=== PATIENT | male | born 1935 | race Caucasian/White ===

== ENCOUNTER 2018-03-16 11:55 | Emergency (ER) | payer MEDICARE, OTHER, MEDICAID ==
[2018-03-16 12:51] LABS: ADD MAN DIFF? NO
[2018-03-16 13:01] LABS: BASOPHILS % 0.6 % (0.0-2.0); EOSINOPHILS # 0.2 10^3/ul (0.0-0.5); EOSINOPHILS % 4.1 % (0.0-7.0); HEMATOCRIT 38.9 % (42.0-52.0); HEMOGLOBIN 13.2 g/dl (14.0-18.0); LYMPHOCYTES # 1.5 10^3/ul (0.8-2.9); LYMPHOCYTES % 28.3 % (15.0-51.0); MEAN CORPUSCULAR HEMOGLOBIN 29.8 pg (29.0-33.0); MEAN CORPUSCULAR HGB CONC 33.9 g/dl (32.0-37.0); MEAN CORPUSCULAR VOLUME 87.8 fl (82.0-101.0); MEAN PLATELET VOLUME 9.9 fl (7.4-10.4); MONOCYTE # 0.7 10^3/ul (0.3-0.9); MONOCYTES % 12.2 % (0.0-11.0); NEUTROPHIL # 2.9 10^3/ul (1.6-7.5); NEUTROPHILS % 54.6 % (39.0-77.0); PLATELET COUNT 252 10^3/UL (140-415); RED BLOOD COUNT 4.43 10^6/ul (4.70-6.10); RED CELL DISTRIBUTION WIDTH 12.2 % (11.5-14.5)
[2018-03-16 13:01] LABS: WHITE BLOOD COUNT 5.3 10^3/ul (4.8-10.8)
[2018-03-16 13:17] LABS: INR 0.99; PROTIME 13.2 Sec (11.9-14.9)
[2018-03-16 13:20] LABS: ALANINE AMINOTRANSFERASE 32 IU/L (13-69); ALBUMIN 4.3 g/dl (3.3-4.9); ALBUMIN/GLOBULIN RATIO 1.34; ALKALINE PHOSPHATASE 109 IU/L (42-121); ANION GAP 9 (5-13); ASPARTATE AMINO TRANSFERASE 30 IU/L (15-46); BILIRUBIN,INDIRECT 0.2 mg/dl (0-1.1); BILIRUBIN,TOTAL 0.2 mg/dl (0.2-1.3); BLOOD UREA NITROGEN 20 mg/dl (7-20); CALCIUM 9.2 mg/dl (8.4-10.2); CARBON DIOXIDE 24 mmol/L (21-31); CHLORIDE 106 mmol/L (97-110); CREATININE 0.94 mg/dl (0.61-1.24); GLUCOSE 96 mg/dl (70-220); POTASSIUM 4.1 mmol/L (3.5-5.1); SODIUM 139 mmol/L (135-144); TOTAL PROTEIN 7.5 g/dl (6.1-8.1)
[2018-03-16 13:31] LABS: TROPONIN-I < 0.012 ng/ml (0.000-0.120)
== END 2018-03-16 15:05 | disposition home or self-care (01) ==
LOC: E/R 11:55
DX: S00.03XA Contusion of scalp, initial encounter (principal); I10 Essential (primary) hypertension; W18.39XA Other fall on same level, initial encounter; Y92.9 Unspecified place or not applicable
CPT/HCPCS: 70450; 71045; 80053; 84484; 85025; 85610; 93005; 99285-25

== ENCOUNTER 2018-03-28 19:44 | Emergency (ER) | payer MEDICARE, OTHER ==
[2018-03-28] MEDS: ERYTHROMYCIN 1 GM OPH OINT LEFT EYE (23:22)
== END 2018-03-28 23:45 | disposition home or self-care (01) ==
LOC: E/R 23:45
DX: T52.8X1A Toxic effect of other organic solvents, accidental (unintentional), initial encounter (principal); H91.90 Unspecified hearing loss, unspecified ear; I10 Essential (primary) hypertension
CPT/HCPCS: 99283

== ENCOUNTER 2018-08-30 10:23 | Inpatient (IN) | payer MEDICARE, OTHER ==
[2018-08-30] MEDS: SOD CHLORIDE 0.9% 1,000 ML IV ×2 (11:20→15:18)
[2018-08-30 11:42] LABS: WHITE BLOOD COUNT 7.6 10^3/ul (4.8-10.8)
[2018-08-30 11:42] LABS: ADD MAN DIFF? NO; BASOPHILS % 0.3 % (0.0-2.0); EOSINOPHILS # 0.1 10^3/ul (0.0-0.5); EOSINOPHILS % 0.7 % (0.0-7.0); HEMATOCRIT 38.5 % (42.0-52.0); HEMOGLOBIN 13.4 g/dl (14.0-18.0); LYMPHOCYTES # 1.3 10^3/ul (0.8-2.9); LYMPHOCYTES % 16.4 % (15.0-51.0); MEAN CORPUSCULAR HGB CONC 34.8 g/dl (32.0-37.0); MEAN CORPUSCULAR VOLUME 83.3 fl (82.0-101.0); MEAN PLATELET VOLUME 9.8 fl (7.4-10.4); MONOCYTE # 0.7 10^3/ul (0.3-0.9); MONOCYTES % 8.7 % (0.0-11.0); NEUTROPHIL # 5.5 10^3/ul (1.6-7.5); NEUTROPHILS % 72.6 % (39.0-77.0); PLATELET COUNT 262 10^3/UL (140-415); RED BLOOD COUNT 4.62 10^6/ul (4.70-6.10); RED CELL DISTRIBUTION WIDTH 12.2 % (11.5-14.5)
[2018-08-30 12:03] LABS: AMMONIA < 9 umol/l (9-30)
[2018-08-30 12:05] LABS: ALANINE AMINOTRANSFERASE 37 IU/L (13-69); ALBUMIN/GLOBULIN RATIO 1.29; ALKALINE PHOSPHATASE 139 IU/L (42-121); ANION GAP 12 (5-13); ASPARTATE AMINO TRANSFERASE 32 IU/L (15-46); BILIRUBIN,INDIRECT 0.6 mg/dl (0-1.1); BILIRUBIN,TOTAL 0.6 mg/dl (0.2-1.3); BLOOD UREA NITROGEN 15 mg/dl (7-20); CARBON DIOXIDE 27 mmol/L (21-31); CHLORIDE 91 mmol/L (97-110); CREATININE 0.71 mg/dl (0.61-1.24); GLUCOSE 132 mg/dl (70-220); POTASSIUM 4.2 mmol/L (3.5-5.1); SODIUM 130 mmol/L (135-144); TOTAL PROTEIN 7.1 g/dl (6.1-8.1)
[2018-08-30 12:14] LABS: TROPONIN-I 0.073 ng/ml (0.000-0.120)
[2018-08-30 12:35] LABS: ADD UMIC YES; UR ASCORBIC ACID NEGATIVE (NEGATIVE); UR BACTERIA FEW /HPF (NONE SEEN); UR BILIRUBIN (Dip) NEGATIVE (NEGATIVE); UR BLOOD (Dip) NEGATIVE (NEGATIVE); UR CLARITY CLEAR (CLEAR); UR COLOR STRAW (YELLOW); UR GLUCOSE (Dip) NEGATIVE (NEGATIVE); UR KETONES (Dip) NEGATIVE (NEGATIVE); UR LEUKOCYTE ESTERASE (Dip) NEGATIVE Leu/ul (NEGATIVE); UR NITRITE (Dip) NEGATIVE (NEGATIVE); UR RBC 1 /HPF (0-5); UR TOTAL PROTEIN (Dip) 1+ mg/dl (NEGATIVE); UR UROBILINOGEN (Dip) NEGATIVE (NEGATIVE); UR WBC 0 /HPF (0-5)
[2018-08-30 13:53] LABS: INR 0.97
[2018-08-30 13:54] LABS: PARTIAL THROMBOPLASTIN TIME 29.4 Sec (23.0-35.0)
[2018-08-30] MEDS: SOD CHLORIDE 0.9% 100 ML (14:14)
[2018-08-30] MEDS: IOHEXOL 100 ML (14:16)
[2018-08-30] MEDS ORDERED: ACETAMINOPHEN 325 MG TAB PO (14:30)
[2018-08-30] MEDS ORDERED: ONDANSETRON 4 MG INJ IV (14:30)
[2018-08-30] MEDS ORDERED: LABETALOL HCL 20MG INJ IV (15:00)
[2018-08-30] MEDS: DEXTROSE 5%-0.45% NACL 1,000 ML IV (15:20)
[2018-08-30] MEDS: MEMANTINE 10 MG TAB PO (21:46)
[2018-08-31] MEDS: PANTOPRAZOLE 40 MG INJ IV (06:33)
[2018-08-31] MEDS: DEXTROSE 5%-0.45% NACL 1,000 ML IV (06:33)
[2018-08-31 08:58] LABS: ADD MAN DIFF? NO
[2018-08-31 09:03] LABS: WHITE BLOOD COUNT 5.8 10^3/ul (4.8-10.8)
[2018-08-31 09:04] LABS: BASOPHILS % 0.3 % (0.0-2.0); EOSINOPHILS # 0.2 10^3/ul (0.0-0.5); EOSINOPHILS % 3.1 % (0.0-7.0); HEMATOCRIT 37.3 % (42.0-52.0); LYMPHOCYTES # 1.2 10^3/ul (0.8-2.9); LYMPHOCYTES % 20.6 % (15.0-51.0); MEAN CORPUSCULAR HEMOGLOBIN 29.2 pg (29.0-33.0); MEAN CORPUSCULAR HGB CONC 34.9 g/dl (32.0-37.0); MEAN CORPUSCULAR VOLUME 83.8 fl (82.0-101.0); MEAN PLATELET VOLUME 9.6 fl (7.4-10.4); MONOCYTE # 0.6 10^3/ul (0.3-0.9); MONOCYTES % 10.3 % (0.0-11.0); NEUTROPHIL # 3.8 10^3/ul (1.6-7.5); NEUTROPHILS % 64.3 % (39.0-77.0); PLATELET COUNT 225 10^3/UL (140-415); RED BLOOD COUNT 4.45 10^6/ul (4.70-6.10); RED CELL DISTRIBUTION WIDTH 12.5 % (11.5-14.5)
[2018-08-31] MEDS: DONEPEZIL 5 MG TAB PO (09:24)
[2018-08-31] MEDS: MEMANTINE 10 MG TAB PO ×2 (09:25→20:14)
[2018-08-31] MEDS: AMLODIPINE 2.5 MG TAB PO (09:25)
[2018-08-31 09:32] LABS: ALBUMIN 3.5 g/dl (3.3-4.9); ANION GAP 5 (5-13); BLOOD UREA NITROGEN 10 mg/dl (7-20); CALCIUM 8.6 mg/dl (8.4-10.2); CARBON DIOXIDE 25 mmol/L (21-31); CHLORIDE 99 mmol/L (97-110); GLUCOSE 150 mg/dl (70-220); MAGNESIUM 2.2 mg/dl (1.7-2.5); PHOSPHORUS 3.8 mg/dl (2.5-4.9); POTASSIUM 3.6 mmol/L (3.5-5.1); SODIUM 129 mmol/L (135-144)
[2018-08-31 09:44] LABS: HEMOGLOBIN A1C 6.1 % (0-5.9)
[2018-08-31 10:11] LABS: CHOLESTEROL 153 mg/dl (100-200)
[2018-08-31 10:11] LABS: CHOL/HDL RATIO 4.7 RATIO; HDL CHOLESTEROL 32 mg/dl (31-75); LDL CHOLESTEROL,CALCULATED 98 mg/dl; TRIGLYCERIDES 117 mg/dl (0-149)
[2018-08-31] MEDS: POTASSIUM CHLORIDE (SR) 20 MEQ TAB PO (15:08)
[2018-08-31] MEDS: ATORVASTATIN 40 MG TAB PO (20:14)
[2018-09-01] MEDS: hydrALAzine 20 MG INJ IV (01:21)
[2018-09-01 04:50] LABS: ADD MAN DIFF? NO
[2018-09-01 05:16] LABS: INR 0.99; PROTIME 13.2 Sec (11.9-14.9)
[2018-09-01 05:17] LABS: PARTIAL THROMBOPLASTIN TIME 27.7 Sec (23.0-35.0)
[2018-09-01 05:17] LABS: MAGNESIUM 2.2 mg/dl (1.7-2.5)
[2018-09-01 05:20] LABS: ALANINE AMINOTRANSFERASE 30 IU/L (13-69); ALBUMIN/GLOBULIN RATIO 1.21; ALKALINE PHOSPHATASE 143 IU/L (42-121); ANION GAP 9 (5-13); ASPARTATE AMINO TRANSFERASE 25 IU/L (15-46); BILIRUBIN,INDIRECT 0.5 mg/dl (0-1.1); BILIRUBIN,TOTAL 0.5 mg/dl (0.2-1.3); BLOOD UREA NITROGEN 19 mg/dl (7-20); CALCIUM 8.8 mg/dl (8.4-10.2); CARBON DIOXIDE 23 mmol/L (21-31); CHLORIDE 104 mmol/L (97-110); CREATININE 0.75 mg/dl (0.61-1.24); GLUCOSE 133 mg/dl (70-220); POTASSIUM 4.2 mmol/L (3.5-5.1); SODIUM 136 mmol/L (135-144); TOTAL PROTEIN 7.3 g/dl (6.1-8.1)
[2018-09-01] MEDS: PANTOPRAZOLE 40 MG INJ IV (05:54)
[2018-09-01] MEDS: LORAZEPAM 2 MG INJ IV ×2 (06:46→10:00)
[2018-09-01 07:31] LABS: WHITE BLOOD COUNT 9.1 10^3/ul (4.8-10.8)
[2018-09-01 07:31] LABS: BASOPHILS % 0.3 % (0.0-2.0); EOSINOPHILS # 0.3 10^3/ul (0.0-0.5); EOSINOPHILS % 3.8 % (0.0-7.0); HEMATOCRIT 40.5 % (42.0-52.0); LYMPHOCYTES % 22.1 % (15.0-51.0); MEAN CORPUSCULAR HEMOGLOBIN 29.5 pg (29.0-33.0); MEAN CORPUSCULAR HGB CONC 34.6 g/dl (32.0-37.0); MEAN CORPUSCULAR VOLUME 85.3 fl (82.0-101.0); MEAN PLATELET VOLUME 10.5 fl (7.4-10.4); MONOCYTE # 0.8 10^3/ul (0.3-0.9); MONOCYTES % 8.3 % (0.0-11.0); NEUTROPHIL # 5.8 10^3/ul (1.6-7.5); NEUTROPHILS % 64.4 % (39.0-77.0); PLATELET COUNT 269 10^3/UL (140-415); RED BLOOD COUNT 4.75 10^6/ul (4.70-6.10); RED CELL DISTRIBUTION WIDTH 12.5 % (11.5-14.5)
[2018-09-01] MEDS ORDERED: LEVETIRACETAM 1000 MG (PMX) 100 ML IVPB (08:30)
[2018-09-01] MEDS: ACETAMINOPHEN 1000MG/100ML IV 100 ML IVPB (09:21)
[2018-09-01] MEDS: LEVETIRACETAM 1000 MG (PMX) 100 ML IVPB ×2 (11:18→20:52)
[2018-09-01] MEDS: AMLODIPINE 2.5 MG TAB PO (11:22)
[2018-09-01] MEDS: MEMANTINE 10 MG TAB PO ×2 (11:22→20:48)
[2018-09-01] MEDS: DONEPEZIL 5 MG TAB PO (11:22)
[2018-09-01] MEDS: METOPROLOL 25 MG TAB PO ×2 (16:00→20:48)
[2018-09-01] MEDS: ATORVASTATIN 40 MG TAB PO (20:47)
[2018-09-02 05:00] LABS: ADD MAN DIFF? NO
[2018-09-02 05:03] LABS: BASOPHILS % 0.3 % (0.0-2.0); EOSINOPHILS # 0.2 10^3/ul (0.0-0.5); EOSINOPHILS % 2.6 % (0.0-7.0); HEMATOCRIT 39.8 % (42.0-52.0); HEMOGLOBIN 13.5 g/dl (14.0-18.0); LYMPHOCYTES # 1.4 10^3/ul (0.8-2.9); LYMPHOCYTES % 15.9 % (15.0-51.0); MEAN CORPUSCULAR HEMOGLOBIN 29.2 pg (29.0-33.0); MEAN CORPUSCULAR HGB CONC 33.9 g/dl (32.0-37.0); MEAN CORPUSCULAR VOLUME 86.1 fl (82.0-101.0); MEAN PLATELET VOLUME 9.6 fl (7.4-10.4); MONOCYTE # 0.8 10^3/ul (0.3-0.9); MONOCYTES % 8.9 % (0.0-11.0); NEUTROPHIL # 6.5 10^3/ul (1.6-7.5); NEUTROPHILS % 71.6 % (39.0-77.0); PLATELET COUNT 257 10^3/UL (140-415); RED BLOOD COUNT 4.62 10^6/ul (4.70-6.10); RED CELL DISTRIBUTION WIDTH 12.8 % (11.5-14.5)
[2018-09-02] MEDS: PANTOPRAZOLE 40 MG INJ IV (05:35)
[2018-09-02 05:44] LABS: ALBUMIN 3.9 g/dl (3.3-4.9); ANION GAP 9 (5-13); BLOOD UREA NITROGEN 17 mg/dl (7-20); CALCIUM 9.1 mg/dl (8.4-10.2); CARBON DIOXIDE 23 mmol/L (21-31); CHLORIDE 105 mmol/L (97-110); CREATININE 0.73 mg/dl (0.61-1.24); GLUCOSE 132 mg/dl (70-220); MAGNESIUM 2.3 mg/dl (1.7-2.5); POTASSIUM 4.1 mmol/L (3.5-5.1); SODIUM 137 mmol/L (135-144)
[2018-09-02] MEDS: LEVETIRACETAM 1000 MG (PMX) 100 ML IVPB (08:04)
[2018-09-02] MEDS: METOPROLOL 25 MG TAB PO ×2 (08:21→20:34)
[2018-09-02] MEDS: DONEPEZIL 5 MG TAB PO (08:21)
[2018-09-02] MEDS: MEMANTINE 10 MG TAB PO ×2 (08:22→20:34)
[2018-09-02] MEDS: AMLODIPINE 2.5 MG TAB PO (08:22)
[2018-09-02] MEDS: DEXTROSE 5%-0.45% NACL 1,000 ML IV (13:23)
[2018-09-02] MEDS: hydrALAzine 20 MG INJ IV (18:29)
[2018-09-02] MEDS: ATORVASTATIN 40 MG TAB PO (20:34)
[2018-09-02] MEDS: LEVETIRACETAM 500 MG (PMX) 100 ML IVPB (20:35)
[2018-09-03] MEDS: DEXTROSE 5%-0.45% NACL 1,000 ML IV ×2 (03:07→15:33)
[2018-09-03 05:20] LABS: ADD MAN DIFF? NO
[2018-09-03 05:23] LABS: WHITE BLOOD COUNT 11.9 10^3/ul (4.8-10.8)
[2018-09-03 05:23] LABS: BASOPHILS % 0.2 % (0.0-2.0); EOSINOPHILS % 0.2 % (0.0-7.0); HEMATOCRIT 41.3 % (42.0-52.0); HEMOGLOBIN 14.3 g/dl (14.0-18.0); LYMPHOCYTES # 0.8 10^3/ul (0.8-2.9); LYMPHOCYTES % 6.4 % (15.0-51.0); MEAN CORPUSCULAR HEMOGLOBIN 29.6 pg (29.0-33.0); MEAN CORPUSCULAR HGB CONC 34.6 g/dl (32.0-37.0); MEAN CORPUSCULAR VOLUME 85.5 fl (82.0-101.0); MEAN PLATELET VOLUME 9.6 fl (7.4-10.4); MONOCYTE # 1.4 10^3/ul (0.3-0.9); MONOCYTES % 11.4 % (0.0-11.0); NEUTROPHIL # 9.7 10^3/ul (1.6-7.5); NEUTROPHILS % 81.3 % (39.0-77.0); PLATELET COUNT 247 10^3/UL (140-415); RED BLOOD COUNT 4.83 10^6/ul (4.70-6.10); RED CELL DISTRIBUTION WIDTH 12.9 % (11.5-14.5)
[2018-09-03 05:53] LABS: ANION GAP 10 (5-13); BLOOD UREA NITROGEN 12 mg/dl (7-20); CARBON DIOXIDE 22 mmol/L (21-31); CHLORIDE 104 mmol/L (97-110); GLUCOSE 158 mg/dl (70-220); MAGNESIUM 2.1 mg/dl (1.7-2.5); POTASSIUM 3.8 mmol/L (3.5-5.1); SODIUM 136 mmol/L (135-144)
[2018-09-03] MEDS: hydrALAzine 20 MG INJ IV (08:00)
[2018-09-03] MEDS: FAMOTIDINE 20 MG INJ IV (08:53)
[2018-09-03] MEDS: LEVETIRACETAM 500 MG (PMX) 100 ML IVPB ×2 (08:53→20:27)
[2018-09-03] MEDS: MEMANTINE 10 MG TAB PO (09:00)
[2018-09-03] MEDS: AMLODIPINE 2.5 MG TAB PO (09:00)
[2018-09-03] MEDS: METOPROLOL 25 MG TAB PO (09:00)
[2018-09-03] MEDS: DONEPEZIL 5 MG TAB PO (09:00)
[2018-09-03] MEDS ORDERED: ACETAMINOPHEN 1000MG/100ML IV 100 ML IVPB (11:30)
[2018-09-03] MEDS ORDERED: LABETALOL HCL 20MG INJ IV (11:30)
[2018-09-03] MEDS: PANTOPRAZOLE 40 MG INJ IV (12:42)
[2018-09-03] MEDS: LABETALOL HCL 20MG INJ IV (12:47)
[2018-09-03] MEDS: PIPER-TAZO 3.375 GM IV (PMX) 100 ML IVPB ×3 (13:00→23:43)
[2018-09-03 13:09] LABS: LACTIC ACID 1.1 mmol/L (0.5-2.0)
[2018-09-03 13:22] LABS: ADD UMIC YES; UR ASCORBIC ACID NEGATIVE (NEGATIVE); UR BILIRUBIN (Dip) NEGATIVE (NEGATIVE); UR BLOOD (Dip) NEGATIVE (NEGATIVE); UR CLARITY CLEAR (CLEAR); UR COLOR YELLOW (YELLOW); UR GLUCOSE (Dip) NEGATIVE (NEGATIVE); UR KETONES (Dip) TRACE mg/dL (NEGATIVE); UR LEUKOCYTE ESTERASE (Dip) NEGATIVE Leu/ul (NEGATIVE); UR NITRITE (Dip) NEGATIVE (NEGATIVE); UR RBC 3 /HPF (0-5); UR SPECIFIC GRAVITY (Dip) 1.019 (1.003-1.030); UR TOTAL PROTEIN (Dip) 2+ mg/dl (NEGATIVE); UR UROBILINOGEN (Dip) 2+ mg/dL (NEGATIVE); UR WBC 4 /HPF (0-5)
[2018-09-04] MEDS: PIPER-TAZO 3.375 GM IV (PMX) 100 ML IVPB ×4 (05:26→23:39)
[2018-09-04] MEDS: PANTOPRAZOLE 40 MG INJ IV (05:26)
[2018-09-04 06:11] LABS: ADD MAN DIFF? NO
[2018-09-04 06:16] LABS: WHITE BLOOD COUNT 10.7 10^3/ul (4.8-10.8)
[2018-09-04 06:16] LABS: BASOPHILS % 0.3 % (0.0-2.0); EOSINOPHILS # 0.1 10^3/ul (0.0-0.5); HEMATOCRIT 37.2 % (42.0-52.0); HEMOGLOBIN 12.7 g/dl (14.0-18.0); LYMPHOCYTES # 0.8 10^3/ul (0.8-2.9); LYMPHOCYTES % 7.7 % (15.0-51.0); MEAN CORPUSCULAR HEMOGLOBIN 29.3 pg (29.0-33.0); MEAN CORPUSCULAR HGB CONC 34.1 g/dl (32.0-37.0); MEAN CORPUSCULAR VOLUME 85.7 fl (82.0-101.0); MONOCYTE # 1.1 10^3/ul (0.3-0.9); MONOCYTES % 10.4 % (0.0-11.0); NEUTROPHIL # 8.6 10^3/ul (1.6-7.5); NEUTROPHILS % 80.1 % (39.0-77.0); PLATELET COUNT 221 10^3/UL (140-415); RED BLOOD COUNT 4.34 10^6/ul (4.70-6.10)
[2018-09-04 06:46] LABS: ANION GAP 7 (5-13); BLOOD UREA NITROGEN 16 mg/dl (7-20); CALCIUM 8.8 mg/dl (8.4-10.2); CARBON DIOXIDE 23 mmol/L (21-31); CHLORIDE 105 mmol/L (97-110); CREATININE 0.81 mg/dl (0.61-1.24); GLUCOSE 161 mg/dl (70-220); MAGNESIUM 2.4 mg/dl (1.7-2.5); PHOSPHORUS 3.7 mg/dl (2.5-4.9); POTASSIUM 3.7 mmol/L (3.5-5.1); SODIUM 135 mmol/L (135-144)
[2018-09-04] MEDS: LEVETIRACETAM 500 MG (PMX) 100 ML IVPB ×2 (09:26→20:06)
[2018-09-04 10:46] LABS: HEMATOCRIT 37.3 % (42.0-52.0); HEMOGLOBIN 12.7 g/dl (14.0-18.0)
[2018-09-04] MEDS: ACETAMINOPHEN 325 MG TAB PO (20:06)
[2018-09-05 05:38] LABS: ADD MAN DIFF? NO
[2018-09-05 05:40] LABS: WHITE BLOOD COUNT 8.5 10^3/ul (4.8-10.8)
[2018-09-05 05:40] LABS: BASOPHILS % 0.2 % (0.0-2.0); EOSINOPHILS # 0.4 10^3/ul (0.0-0.5); EOSINOPHILS % 5.2 % (0.0-7.0); HEMATOCRIT 34.9 % (42.0-52.0); HEMOGLOBIN 11.7 g/dl (14.0-18.0); LYMPHOCYTES # 0.8 10^3/ul (0.8-2.9); LYMPHOCYTES % 9.2 % (15.0-51.0); MEAN CORPUSCULAR HEMOGLOBIN 29.5 pg (29.0-33.0); MEAN CORPUSCULAR HGB CONC 33.5 g/dl (32.0-37.0); MEAN CORPUSCULAR VOLUME 87.9 fl (82.0-101.0); MEAN PLATELET VOLUME 10.1 fl (7.4-10.4); MONOCYTE # 0.8 10^3/ul (0.3-0.9); MONOCYTES % 9.8 % (0.0-11.0); NEUTROPHIL # 6.4 10^3/ul (1.6-7.5); PLATELET COUNT 215 10^3/UL (140-415); RED BLOOD COUNT 3.97 10^6/ul (4.70-6.10); RED CELL DISTRIBUTION WIDTH 12.8 % (11.5-14.5)
[2018-09-05] MEDS: LANSOPRAZOLE 30 MG CAP NGT (05:48)
[2018-09-05] MEDS: PIPER-TAZO 3.375 GM IV (PMX) 100 ML IVPB ×3 (05:48→17:16)
[2018-09-05 06:19] LABS: ANION GAP 6 (5-13); BLOOD UREA NITROGEN 20 mg/dl (7-20); CALCIUM 8.3 mg/dl (8.4-10.2); CARBON DIOXIDE 24 mmol/L (21-31); CHLORIDE 106 mmol/L (97-110); CREATININE 0.78 mg/dl (0.61-1.24); GLUCOSE 192 mg/dl (70-220); MAGNESIUM 2.6 mg/dl (1.7-2.5); PHOSPHORUS 3.4 mg/dl (2.5-4.9); POTASSIUM 3.6 mmol/L (3.5-5.1); SODIUM 136 mmol/L (135-144)
[2018-09-05] MEDS: LEVETIRACETAM 500 MG (PMX) 100 ML IVPB ×2 (08:07→20:32)
[2018-09-05] MEDS ORDERED: FAMOTIDINE 20 MG INJ IV (09:00)
[2018-09-05] MEDS: MEMANTINE 10 MG TAB PO (20:27)
[2018-09-05] MEDS: ACETAMINOPHEN 325 MG TAB PO (20:27)
[2018-09-05] MEDS: ATORVASTATIN 40 MG TAB PO (20:27)
[2018-09-05] MEDS: METOPROLOL 25 MG TAB PO (20:28)
[2018-09-05] MEDS: KETOROLAC 30 MG INJ IV (20:32)
[2018-09-06] MEDS: PIPER-TAZO 3.375 GM IV (PMX) 100 ML IVPB ×4 (01:14→17:41)
[2018-09-06] MEDS: LANSOPRAZOLE 30 MG CAP NGT (05:52)
[2018-09-06 06:04] LABS: ADD MAN DIFF? NO
[2018-09-06 06:10] LABS: WHITE BLOOD COUNT 6.8 10^3/ul (4.8-10.8)
[2018-09-06 06:10] LABS: BASOPHILS % 0.3 % (0.0-2.0); EOSINOPHILS # 0.5 10^3/ul (0.0-0.5); EOSINOPHILS % 7.9 % (0.0-7.0); HEMATOCRIT 34.4 % (42.0-52.0); HEMOGLOBIN 11.6 g/dl (14.0-18.0); LYMPHOCYTES # 1.1 10^3/ul (0.8-2.9); LYMPHOCYTES % 16.8 % (15.0-51.0); MEAN CORPUSCULAR HEMOGLOBIN 29.6 pg (29.0-33.0); MEAN CORPUSCULAR HGB CONC 33.7 g/dl (32.0-37.0); MEAN CORPUSCULAR VOLUME 87.8 fl (82.0-101.0); MEAN PLATELET VOLUME 10.1 fl (7.4-10.4); MONOCYTE # 0.7 10^3/ul (0.3-0.9); MONOCYTES % 9.6 % (0.0-11.0); NEUTROPHIL # 4.4 10^3/ul (1.6-7.5); PLATELET COUNT 234 10^3/UL (140-415); RED BLOOD COUNT 3.92 10^6/ul (4.70-6.10); RED CELL DISTRIBUTION WIDTH 12.6 % (11.5-14.5)
[2018-09-06 06:36] LABS: ANION GAP 5 (5-13); BLOOD UREA NITROGEN 19 mg/dl (7-20); CALCIUM 8.3 mg/dl (8.4-10.2); CARBON DIOXIDE 25 mmol/L (21-31); CHLORIDE 107 mmol/L (97-110); CREATININE 0.78 mg/dl (0.61-1.24); GLUCOSE 118 mg/dl (70-220); MAGNESIUM 2.5 mg/dl (1.7-2.5); PHOSPHORUS 4.2 mg/dl (2.5-4.9); POTASSIUM 3.8 mmol/L (3.5-5.1); SODIUM 137 mmol/L (135-144)
[2018-09-06] MEDS: LEVETIRACETAM 500 MG (PMX) 100 ML IVPB ×2 (08:57→20:32)
[2018-09-06] MEDS: DONEPEZIL 5 MG TAB PO (08:57)
[2018-09-06] MEDS: MEMANTINE 10 MG TAB PO ×2 (08:57→20:33)
[2018-09-06] MEDS: ASPIRIN 81 MG TAB PO (08:58)
[2018-09-06] MEDS: AMLODIPINE 2.5 MG TAB PO (08:58)
[2018-09-06] MEDS: METOPROLOL 25 MG TAB PO ×2 (08:58→20:33)
[2018-09-06] MEDS ORDERED: LORAZEPAM 2 MG INJ IV (12:00)
[2018-09-06] MEDS: ACETAMINOPHEN 325 MG TAB PO ×2 (13:57→20:34)
[2018-09-06] MEDS ORDERED: morphine 2 MG INJ (17:38)
[2018-09-06] MEDS: morphine 2 MG INJ IV (17:40)
[2018-09-06 18:30] LABS: TROPONIN-I < 0.012 ng/ml (0.000-0.120)
[2018-09-06] MEDS: ATORVASTATIN 40 MG TAB PO (20:33)
[2018-09-06] MEDS: LABETALOL HCL 20MG INJ IV (20:40)
[2018-09-07] MEDS: PIPER-TAZO 3.375 GM IV (PMX) 100 ML IVPB ×5 (01:17→23:38)
[2018-09-07 05:33] LABS: ADD MAN DIFF? NO
[2018-09-07 05:39] LABS: WHITE BLOOD COUNT 12.4 10^3/ul (4.8-10.8)
[2018-09-07 05:39] LABS: BASOPHILS % 0.2 % (0.0-2.0); EOSINOPHILS % 0.2 % (0.0-7.0); HEMATOCRIT 36.4 % (42.0-52.0); HEMOGLOBIN 12.3 g/dl (14.0-18.0); LYMPHOCYTES # 1.1 10^3/ul (0.8-2.9); LYMPHOCYTES % 8.6 % (15.0-51.0); MEAN CORPUSCULAR HEMOGLOBIN 29.4 pg (29.0-33.0); MEAN CORPUSCULAR HGB CONC 33.8 g/dl (32.0-37.0); MEAN CORPUSCULAR VOLUME 86.9 fl (82.0-101.0); MEAN PLATELET VOLUME 9.8 fl (7.4-10.4); MONOCYTE # 1.1 10^3/ul (0.3-0.9); MONOCYTES % 8.6 % (0.0-11.0); NEUTROPHIL # 10.1 10^3/ul (1.6-7.5); NEUTROPHILS % 81.8 % (39.0-77.0); PLATELET COUNT 271 10^3/UL (140-415); RED BLOOD COUNT 4.19 10^6/ul (4.70-6.10); RED CELL DISTRIBUTION WIDTH 12.6 % (11.5-14.5)
[2018-09-07] MEDS: LANSOPRAZOLE 30 MG CAP NGT (06:07)
[2018-09-07 06:35] LABS: ANION GAP 7 (5-13); BLOOD UREA NITROGEN 18 mg/dl (7-20); CALCIUM 8.7 mg/dl (8.4-10.2); CARBON DIOXIDE 26 mmol/L (21-31); CHLORIDE 104 mmol/L (97-110); CREATININE 0.84 mg/dl (0.61-1.24); GLUCOSE 140 mg/dl (70-220); MAGNESIUM 2.4 mg/dl (1.7-2.5); PHOSPHORUS 4.6 mg/dl (2.5-4.9); POTASSIUM 4.1 mmol/L (3.5-5.1); SODIUM 137 mmol/L (135-144)
[2018-09-07] MEDS: METOPROLOL 25 MG TAB PO ×2 (08:16→22:16)
[2018-09-07] MEDS: LEVETIRACETAM 500 MG (PMX) 100 ML IVPB ×2 (08:16→22:15)
[2018-09-07] MEDS: AMLODIPINE 2.5 MG TAB PO (08:17)
[2018-09-07] MEDS: ASPIRIN 81 MG TAB PO (08:17)
[2018-09-07] MEDS: DONEPEZIL 5 MG TAB PO (08:17)
[2018-09-07] MEDS: MEMANTINE 10 MG TAB PO ×2 (08:17→22:17)
[2018-09-07] MEDS: ACETAMINOPHEN 325 MG TAB PO (11:30)
[2018-09-07] MEDS ORDERED: ATORVASTATIN 40 MG TAB PO (21:00)
[2018-09-07] MEDS: ATORVASTATIN 40 MG TAB PO (22:16)
[2018-09-08 06:18] LABS: ADD MAN DIFF? NO; BASOPHILS % 0.4 % (0.0-2.0); EOSINOPHILS # 0.3 10^3/ul (0.0-0.5); EOSINOPHILS % 3.6 % (0.0-7.0); HEMATOCRIT 32.5 % (42.0-52.0); HEMOGLOBIN 10.8 g/dl (14.0-18.0); LYMPHOCYTES # 0.9 10^3/ul (0.8-2.9); LYMPHOCYTES % 11.8 % (15.0-51.0); MEAN CORPUSCULAR HEMOGLOBIN 29.5 pg (29.0-33.0); MEAN CORPUSCULAR HGB CONC 33.2 g/dl (32.0-37.0); MEAN CORPUSCULAR VOLUME 88.8 fl (82.0-101.0); MEAN PLATELET VOLUME 10.1 fl (7.4-10.4); MONOCYTE # 0.7 10^3/ul (0.3-0.9); MONOCYTES % 9.2 % (0.0-11.0); NEUTROPHIL # 5.7 10^3/ul (1.6-7.5); NEUTROPHILS % 74.5 % (39.0-77.0); PLATELET COUNT 216 10^3/UL (140-415); RED BLOOD COUNT 3.66 10^6/ul (4.70-6.10); RED CELL DISTRIBUTION WIDTH 12.8 % (11.5-14.5)
[2018-09-08 06:18] LABS: WHITE BLOOD COUNT 7.7 10^3/ul (4.8-10.8)
[2018-09-08] MEDS: PIPER-TAZO 3.375 GM IV (PMX) 100 ML IVPB (06:39)
[2018-09-08] MEDS: LANSOPRAZOLE 30 MG CAP NGT (06:39)
[2018-09-08 07:07] LABS: MAGNESIUM 2.7 mg/dl (1.7-2.5)
[2018-09-08 07:07] LABS: PHOSPHORUS 3.6 mg/dl (2.5-4.9)
[2018-09-08 07:12] LABS: ANION GAP 6 (5-13); BLOOD UREA NITROGEN 21 mg/dl (7-20); CALCIUM 8.2 mg/dl (8.4-10.2); CARBON DIOXIDE 26 mmol/L (21-31); CHLORIDE 109 mmol/L (97-110); CREATININE 0.82 mg/dl (0.61-1.24); GLUCOSE 116 mg/dl (70-220); POTASSIUM 3.7 mmol/L (3.5-5.1); SODIUM 141 mmol/L (135-144)
[2018-09-08] MEDS: ASPIRIN 81 MG TAB PO (09:34)
[2018-09-08] MEDS: DONEPEZIL 5 MG TAB PO (09:34)
[2018-09-08] MEDS: METOPROLOL 25 MG TAB PO ×2 (09:34→22:01)
[2018-09-08] MEDS: AMLODIPINE 2.5 MG TAB PO (09:35)
[2018-09-08] MEDS: MEMANTINE 10 MG TAB PO ×2 (09:35→22:01)
[2018-09-08] MEDS: ACETAMINOPHEN 325 MG TAB PO (12:14)
[2018-09-08] MEDS: ATORVASTATIN 40 MG TAB PO (22:01)
[2018-09-09] MEDS: LANSOPRAZOLE 30 MG CAP NGT (05:59)
[2018-09-09 06:12] LABS: ADD MAN DIFF? NO
[2018-09-09 06:21] LABS: BASOPHILS % 0.4 % (0.0-2.0); EOSINOPHILS # 0.4 10^3/ul (0.0-0.5); EOSINOPHILS % 4.3 % (0.0-7.0); HEMATOCRIT 35.6 % (42.0-52.0); HEMOGLOBIN 11.7 g/dl (14.0-18.0); LYMPHOCYTES # 0.9 10^3/ul (0.8-2.9); LYMPHOCYTES % 11.5 % (15.0-51.0); MEAN CORPUSCULAR HEMOGLOBIN 28.7 pg (29.0-33.0); MEAN CORPUSCULAR HGB CONC 32.9 g/dl (32.0-37.0); MEAN CORPUSCULAR VOLUME 87.5 fl (82.0-101.0); MEAN PLATELET VOLUME 10.2 fl (7.4-10.4); MONOCYTE # 0.6 10^3/ul (0.3-0.9); MONOCYTES % 7.1 % (0.0-11.0); NEUTROPHIL # 6.2 10^3/ul (1.6-7.5); NEUTROPHILS % 76.3 % (39.0-77.0); PLATELET COUNT 250 10^3/UL (140-415); RED BLOOD COUNT 4.07 10^6/ul (4.70-6.10); RED CELL DISTRIBUTION WIDTH 12.4 % (11.5-14.5)
[2018-09-09 06:21] LABS: WHITE BLOOD COUNT 8.2 10^3/ul (4.8-10.8)
[2018-09-09 06:41] LABS: PHOSPHORUS 3.6 mg/dl (2.5-4.9)
[2018-09-09 06:41] LABS: MAGNESIUM 2.5 mg/dl (1.7-2.5)
[2018-09-09 06:51] LABS: ANION GAP 6 (5-13); BLOOD UREA NITROGEN 15 mg/dl (7-20); CALCIUM 8.7 mg/dl (8.4-10.2); CARBON DIOXIDE 26 mmol/L (21-31); CHLORIDE 106 mmol/L (97-110); CREATININE 0.62 mg/dl (0.61-1.24); GLUCOSE 132 mg/dl (70-220); SODIUM 138 mmol/L (135-144)
[2018-09-09] MEDS: ASPIRIN 81 MG TAB PO (09:51)
[2018-09-09] MEDS: METOPROLOL 25 MG TAB PO ×2 (09:51→21:40)
[2018-09-09] MEDS: DONEPEZIL 5 MG TAB PO (09:51)
[2018-09-09] MEDS: MEMANTINE 10 MG TAB PO ×2 (09:51→21:40)
[2018-09-09] MEDS: AMLODIPINE 2.5 MG TAB PO (09:51)
[2018-09-09] MEDS: ATORVASTATIN 40 MG TAB PO (21:40)
[2018-09-10] MEDS: LABETALOL HCL 20MG INJ IV (00:51)
[2018-09-10 05:37] LABS: ADD MAN DIFF? NO
[2018-09-10 05:50] LABS: WHITE BLOOD COUNT 7.1 10^3/ul (4.8-10.8)
[2018-09-10 05:50] LABS: BASOPHILS % 0.4 % (0.0-2.0); EOSINOPHILS # 0.3 10^3/ul (0.0-0.5); EOSINOPHILS % 4.2 % (0.0-7.0); HEMATOCRIT 35.4 % (42.0-52.0); HEMOGLOBIN 11.6 g/dl (14.0-18.0); LYMPHOCYTES # 1.2 10^3/ul (0.8-2.9); LYMPHOCYTES % 16.7 % (15.0-51.0); MEAN CORPUSCULAR HEMOGLOBIN 28.8 pg (29.0-33.0); MEAN CORPUSCULAR HGB CONC 32.8 g/dl (32.0-37.0); MEAN CORPUSCULAR VOLUME 87.8 fl (82.0-101.0); MEAN PLATELET VOLUME 10.4 fl (7.4-10.4); MONOCYTE # 0.6 10^3/ul (0.3-0.9); MONOCYTES % 8.3 % (0.0-11.0); NEUTROPHILS % 70.1 % (39.0-77.0); PLATELET COUNT 279 10^3/UL (140-415); RED BLOOD COUNT 4.03 10^6/ul (4.70-6.10); RED CELL DISTRIBUTION WIDTH 12.3 % (11.5-14.5)
[2018-09-10 06:15] LABS: PHOSPHORUS 5.1 mg/dl (2.5-4.9)
[2018-09-10 06:15] LABS: MAGNESIUM 2.6 mg/dl (1.7-2.5)
[2018-09-10] MEDS: LANSOPRAZOLE 30 MG CAP NGT (06:20)
[2018-09-10 06:40] LABS: ANION GAP 6 (5-13); BLOOD UREA NITROGEN 18 mg/dl (7-20); CALCIUM 8.9 mg/dl (8.4-10.2); CARBON DIOXIDE 28 mmol/L (21-31); CHLORIDE 105 mmol/L (97-110); CREATININE 0.76 mg/dl (0.61-1.24); GLUCOSE 130 mg/dl (70-220); POTASSIUM 4.4 mmol/L (3.5-5.1); SODIUM 139 mmol/L (135-144)
[2018-09-10] MEDS: ASPIRIN 81 MG TAB PO (08:17)
[2018-09-10] MEDS: MEMANTINE 10 MG TAB PO ×2 (08:17→21:03)
[2018-09-10] MEDS: DONEPEZIL 5 MG TAB PO (08:17)
[2018-09-10] MEDS: AMLODIPINE 2.5 MG TAB PO (08:18)
[2018-09-10] MEDS: METOPROLOL 25 MG TAB PO ×2 (08:19→21:03)
[2018-09-10] MEDS: ACETAMINOPHEN 325 MG TAB PO (12:39)
[2018-09-10] MEDS: ATORVASTATIN 40 MG TAB PO (21:03)
[2018-09-11] MEDS: LABETALOL HCL 20MG INJ IV ×2 (01:37→22:44)
[2018-09-11] MEDS: ONDANSETRON 4 MG INJ IV (03:17)
[2018-09-11] MEDS: LANSOPRAZOLE 30 MG CAP NGT (06:06)
[2018-09-11] MEDS: ASPIRIN 81 MG TAB PO (09:07)
[2018-09-11] MEDS: MEMANTINE 10 MG TAB PO ×2 (09:07→21:38)
[2018-09-11] MEDS: DONEPEZIL 5 MG TAB PO (09:07)
[2018-09-11] MEDS: AMLODIPINE 2.5 MG TAB PO (09:08)
[2018-09-11] MEDS: METOPROLOL 25 MG TAB PO ×2 (09:08→21:40)
[2018-09-11] MEDS: hydrALAzine 20 MG INJ IV (15:42)
[2018-09-11] MEDS: ATORVASTATIN 40 MG TAB PO (21:38)
[2018-09-12] MEDS ORDERED: PANTOPRAZOLE (EC) 40 MG TAB PO (06:00)
[2018-09-12] MEDS ORDERED: LANSOPRAZOLE 30 MG CAP PO (06:00)
[2018-09-12] MEDS: LANSOPRAZOLE 30 MG CAP PO (06:26)
[2018-09-12] MEDS: BARIUM SULFATE 135 ML (E-Z HD) PO (08:48)
[2018-09-12] MEDS: MEMANTINE 10 MG TAB PO ×2 (09:37→20:38)
[2018-09-12] MEDS: ASPIRIN 81 MG TAB PO (09:37)
[2018-09-12] MEDS: DONEPEZIL 5 MG TAB PO (09:37)
[2018-09-12] MEDS: METOPROLOL 25 MG TAB PO ×2 (09:37→20:39)
[2018-09-12] MEDS: AMLODIPINE 2.5 MG TAB PO (09:38)
[2018-09-12] MEDS: ACETAMINOPHEN 325 MG TAB PO ×2 (10:21→22:50)
[2018-09-12] MEDS: MAGNESIUM HYDROXIDE 30ML CUP PO (10:26)
[2018-09-12] MEDS: DOCUSATE SODIUM 100 MG CAP PO (10:26)
[2018-09-12] MEDS: ATORVASTATIN 40 MG TAB PO (20:38)
[2018-09-12] MEDS: hydrALAzine 20 MG INJ IV (20:40)
[2018-09-13] MEDS: hydrALAzine 20 MG INJ IV (03:27)
[2018-09-13] MEDS: ACETAMINOPHEN 325 MG TAB PO (04:37)
[2018-09-13] MEDS: LANSOPRAZOLE 30 MG CAP PO (06:11)
[2018-09-13] MEDS: MEMANTINE 10 MG TAB PO (09:46)
[2018-09-13] MEDS: ASPIRIN 81 MG TAB PO (09:46)
[2018-09-13] MEDS: DONEPEZIL 5 MG TAB PO (09:53)
[2018-09-13] MEDS: AMLODIPINE 2.5 MG TAB PO (09:53)
[2018-09-13] MEDS: METOPROLOL 25 MG TAB PO (09:54)
== END 2018-09-13 17:05 | DRG 64 ==
LOC: ICU 09-01 04:51 → PP2 09-12 01:04 → E/R 10:23 → ICU 09-01 05:02 → PP2 09-12 12:52 → TEL 08-31 18:34 → 6WM 09-01 20:38 → ICU 14:31
DX: I61.8 Other nontraumatic intracerebral hemorrhage (principal); I63.50 Cerebral infarction due to unspecified occlusion or stenosis of unspecified cerebral artery; G81.94 Hemiplegia, unspecified affecting left nondominant side; R47.01 Aphasia; E87.1 Hypo-osmolality and hyponatremia; G93.40 Encephalopathy, unspecified; G30.9 Alzheimer's disease, unspecified; F02.80 Dementia in other diseases classified elsewhere, unspecified severity, without behavioral disturbance, psychotic disturbance, mood disturbance, and anxiety; I10 Essential (primary) hypertension; R41.0 Disorientation, unspecified; R73.03 Prediabetes; R29.716 NIHSS score 16
CPT/HCPCS: 70450; 70496; 70551; 71045; 74018; 74230; 80048; 80053; 80061; 80069; 81001; 82140; 82962; 83036; 83605; 83735; 84100; 84484; 85014; 85018; 85025; 85610; 85730; 87040-91; 87081; 92526; 92610; 92611; 93005; 93306; 93880; 95819; 96360; 96361; 97110; 97163; 97165; 97530; 97535; 99285-25